=== PATIENT | female | born 1985 | race African-American/Black ===

== ENCOUNTER 2019-04-04 13:22 | Emergency (ER) | payer BC, OTHER ==
[~2019-04-04] VITALS: Ht 160 cm; Wt 116.1 kg
[2019-04-04 14:01] VITALS: BP 151/71
--- NOTE | 2019-04-04 14:23 | PHYS DOC ---
Past Medical History Past Medical History: No Pertinent History Past Surgical History: Additional Past Surgical Histo: ROTATOR CUFF Smoking Status: Never Smoker Alcohol Use: Occasionally Drug Use: None Adult General Chief Complaint Chief Complaint: LOWER EXT PAIN [facility] HPI Patient is a 33 year old female who presents with complaint of right upper extremity pain. She was giving plasma approximately one week ago and while the infusion was returning to her arm she had some extravasation into the surrounding tissues. She has been applying cool compresses but she continues to have a sensation of pressure in the upper arm without swelling distally or excessive warmth or fever. She called the clinic and they told her come to the ER for reevaluation. Mild to moderate Review of Systems Review of Systems All other ROS is negative unless otherwise stated in HPI Allergies Allergies Allergies Coded Allergies Type Severity Reaction Last Updated Verified No Known Drug Allergies 07/12/13 No Physical Exam Physical Exam See above Constitutional: Well developed, well nourished, no acute distress, non-toxic appearance. [] HENT: Normocephalic, atraumatic, bilateral external ears normal, oropharynx moist, no oral exudates, nose normal. [] Eyes: PERRLA, EOMI, conjunctiva normal, no discharge. [] Neck: Normal range of motion, no tenderness, supple, no stridor. [] Cardiovascular:Heart rate regular rhythm, no murmur [] Lungs & Thorax: Bilateral breath sounds clear to auscultation [] Abdomen: Bowel sounds normal, soft, no tenderness, no masses, no pulsatile masses. [] Skin: Patient has evidence of what appears to be a contusion although this is likely from an extravasation of returned blood products into the upper arm that is on the anterolateral and medial aspect and somewhat laterally and posteriorly. There is no excessive warmth or erythema noted. Back: No tenderness, no CVA tenderness. [] Extremities: No tenderness, no cyanosis, no clubbing, ROM intact, no edema. The area adjacent to bruising and about the bruising is not firm Neurologic: Alert and oriented X 3, normal motor function, normal sensory function, no focal deficits noted. [] Psychologic: Affect normal, judgement normal, mood normal. [] Current Patient Data Vital Signs Vital Signs Date Time Temp Pulse Resp B/P (MAP) Pulse Ox O2 Delivery O2 Flow Rate FiO2 04/04/19 14:01 98.2 89 18 151/71 (97) 100 Room Air 98.2 EKG EKG [] Radiology/Procedures Radiology/Procedures [] Course & Med Decision Making Course & Med Decision Making Patient seen for extravasation of blood products into her upper arm. Course is progressing as expected. There is no sign of infection or DVT. I recommend that she start on ibuprofen twice daily and continue ice pack and if her symptoms worsen or she develops fever she is to return to the ER. Patient voices understanding. Dragon Disclaimer Dragon Disclaimer This electronic medical record was generated, in whole or in part, using a voice recognition dictation system. Departure Departure Impression: Primary Impression: Contusion of right upper arm Disposition: HOME, SELF-CARE Condition: STABLE Referrals: NO PCP (PCP) Patient Instructions: Contusion Additional Instructions: Use ibuprofen 2 tablets twice daily. Continue to use ice packs 1-2 times daily. Return for fever or excessive warmth or redness or swelling in the arm Scripts No Active Prescriptions or Reported Meds ARMANDO RODGERS DO Apr 04, 2019 14:23
== END 2019-04-04 15:10 | disposition home or self-care (01) ==
LOC: ER 13:22
DX: S40.021A Contusion of right upper arm, initial encounter (principal); X58.XXXA Exposure to other specified factors, initial encounter; Y93.89 Activity, other specified; Y92.89 Other specified places as the place of occurrence of the external cause; Y99.8 Other external cause status
CPT/HCPCS: 99281